=== PATIENT | female | born 1995 | race Two or more races ===

== ENCOUNTER → 2016-07-25 | Outpatient (REF) | payer OTHER ==
[2016-07-25 19:03] LABS: ALBUMIN 3.8 GM/DL (3.2-5.2); ALBUMIN/GLOBULIN RATIO 1.06 (1.00-1.93); ALKALINE PHOSPHATASE 129 U/L (45-117); ALT/SGPT 41 U/L (12-78); ANION GAP 8 MEQ/L (8-16); AST/SGOT 32 U/L (15-37); BILIRUBIN,TOTAL 0.4 MG/DL (0.2-1.0); BLOOD UREA NITROGEN 9 MG/DL (7-18); CALCIUM LEVEL 9.2 MG/DL (8.5-10.1); CARBON DIOXIDE LEVEL 29 MEQ/L (21-32); CHLORIDE LEVEL 106 MEQ/L (98-107); CREATININE FOR GFR 0.77 MG/DL (0.55-1.02); FREE T4 0.83 NG/DL (0.76-1.46); GLOMERULAR FILTRATION RATE > 60.0 (>60); GLUCOSE, FASTING 78 MG/DL (70-105); POTASSIUM SERUM 3.9 MEQ/L (3.5-5.1); SODIUM LEVEL 143 MEQ/L (136-145); TOTAL PROTEIN 7.4 GM/DL (6.4-8.2)
== END ==
LOC: M SFHCPLAZ 15:48
PROVIDERS: ATTEND Nurse Practitioner Family
DX: E66.9 Obesity, unspecified (principal); E03.9 Hypothyroidism, unspecified

== ENCOUNTER 2016-08-14 11:26 | Emergency (ER) | payer BC, OTHER ==
[~2016-08-14] VITALS: Ht 170.2 cm; Wt 129.3 kg
[2016-08-14] MEDS ORDERED: LEVO125T3 PO (11:40)
[2016-08-14 14:14] LABS: BASO % 0.4 % (0.0-1.0); EOS # 0.2 K/mm3 (0.0-0.50); EOS % 2.4 % (0.0-3.0); LARGE UNSTAINED CELL # 0.1 K/mm3 (0.0-0.4); LARGE UNSTAINED CELL % 1.3 % (0.0-4.0); LYMPH # 2.4 K/mm3 (1.5-6.5); MEAN CORPUSCULAR HEMOGLOBIN 29.3 pg (27.0-33.0); MEAN CORPUSCULAR HGB CONC 34.4 g/dl (32.0-36.5); MEAN CORPUSCULAR VOLUME 85.1 fl (80.0-96.0); MONO # 0.3 K/mm3 (0.0-0.8); MONO % 4.8 % (0.0-5.0); PLATELET COUNT, AUTOMATED 211 k/mm3 (150-450); RED CELL DISTRIBUTION WIDTH 12.7 % (11.5-14.5)
[2016-08-14 15:12] VITALS: BP 157/85
--- NOTE | 2016-08-14 16:45 | REP ---
Pelvic sonogram: History: Verify Mirena IUD placement. Findings: Transabdominal and transvaginal scanning are performed. Uterine dimensions are normal 6.7 x 3.8 x 5.6 cm. There is a Nabothian cyst in the cervix. Endometrial echo is 0.5 cm in thickness. The intrauterine device is noted in the lower uterine segment endometrium. Normal ovaries are seen bilaterally. Right ovary measures 3.9 x 2.3 x 3.3 cm. Left ovarian dimensions are 4.0 x 2.7 x 2.6 cm. Impression: The IUD is seen in the lower uterine segment endometrium. Normal ovaries. A Nabothian cyst. Otherwise negative pelvic sonography. Signed by Bienvenido Mcmahan MD 08/14/2016 05:08 P
== END 2016-08-14 15:16 | disposition home or self-care (01) ==
LOC: M ED 14:49
DX: N93.9 Abnormal uterine and vaginal bleeding, unspecified (principal)

== ENCOUNTER → 2016-11-19 | Outpatient (REF) | payer OTHER ==
[~2016-11-19] MED LIST: LEVO125T3 PO
[2016-11-19 19:29] LABS: FREE T4 1.05 NG/DL (0.76-1.46)
== END ==
LOC: M SFHCPLAZ 10:44
PROVIDERS: ATTEND Nurse Practitioner Family
DX: E03.9 Hypothyroidism, unspecified (principal)

== ENCOUNTER → 2017-02-14 | Outpatient (REF) | payer OTHER ==
[~2017-02-14] MED LIST changes: -LEVO125T3 PO; +LEVO125T4 PO
[2017-02-14 16:18] LABS: FREE T4 1.29 NG/DL (0.76-1.46)
== END ==
LOC: M SFHCPLAZ 13:40
PROVIDERS: ATTEND Nurse Practitioner Family
DX: E03.9 Hypothyroidism, unspecified (principal)

== ENCOUNTER → 2018-02-24 | Outpatient (CLI) | payer BC, OTHER ==
[~2018-02-24] MED LIST changes: -LEVO125T4 PO; +PROHANCE 279.3MG/ML 15ML VIAL (A9576) As Ordered; +PROHANCE 279.3MG/ML 5ML VIAL (A9576) As Ordered
== END ==
LOC: M RAD 15:13
DX: H40.1133 Primary open-angle glaucoma, bilateral, severe stage (principal)
CPT/HCPCS: A9576

== ENCOUNTER → 2019-01-28 | Outpatient (CLI) | payer BC, OTHER ==
[~2019-01-28] MED LIST changes: +LEVO125T4 PO; -PROHANCE 279.3MG/ML 15ML VIAL (A9576) As Ordered; -PROHANCE 279.3MG/ML 5ML VIAL (A9576) As Ordered
[2019-01-28 10:47] LABS: HEMATOCRIT 38.6 % (36.0-47.0); HEMOGLOBIN 13.2 g/dl (12.0-15.5); MEAN CORPUSCULAR HEMOGLOBIN 29.8 pg (27.0-33.0); MEAN CORPUSCULAR HGB CONC 34.2 g/dl (32.0-36.5); MEAN CORPUSCULAR VOLUME 87.1 fl (80.0-96.0); PLATELET COUNT, AUTOMATED 229 10^3/uL (150-450); RED BLOOD COUNT 4.43 10^6/uL (4.00-5.40); WHITE BLOOD COUNT 6.1 10^3/uL (4.0-10.0)
[2019-01-28 11:04] LABS: HEMOGLOBIN A1c 5.1 %
[2019-01-28 11:14] LABS: ALBUMIN 3.9 GM/DL (3.2-5.2); ALT/SGPT 52 U/L (12-78); BILIRUBIN,TOTAL 0.5 MG/DL (0.2-1.0); BLOOD UREA NITROGEN 8 MG/DL (7-18); CALCIUM LEVEL 9.2 MG/DL (8.5-10.1); CARBON DIOXIDE LEVEL 26 MEQ/L (21-32); CHLORIDE LEVEL 106 MEQ/L (98-107); CHOLESTEROL LEVEL 135 MG/DL (<200); GLOMERULAR FILTRATION RATE > 60.0 (>60); GLUCOSE, FASTING 89 MG/DL (70-100); HDL CHOLESTEROL 50 MG/DL (>40); IRON (FE) 88 UG/DL (50-170); LDL CHOLESTEROL 72 MG/DL (<100); NON-HDL-C 85 MG/DL; PERCENT SATURATION 29.8 % (13.2-45.0); POTASSIUM SERUM 3.9 MEQ/L (3.5-5.1); SODIUM LEVEL 138 MEQ/L (136-145); THYROXINE (T4) 10.9 UG/DL (4.5-12.0); TOTAL 25(OH) VITAMIN D 20.6 NG/ML (30.0-100.0); TOTAL IRON BINDING CAPACITY 295 UG/DL (250-450); TOTAL PROTEIN 7.3 GM/DL (6.4-8.2); TRIGLYCERIDES LEVEL 66 MG/DL (<150)
[2019-01-28 11:15] LABS: TOTAL T3 164.4 NG/DL (60.0-181.0)
== END ==
LOC: M LAB 10:02
PROVIDERS: ATTEND Family Medicine
DX: D64.9 Anemia, unspecified (principal)

== ENCOUNTER 2019-04-28 17:29 | Emergency (ER) | payer BC, OTHER ==
[~2019-04-28] VITALS: Ht 177.8 cm; Wt 131.8 kg
[2019-04-28 18:21] LABS: BASO % 0.4 % (0.0-1.0); EOS # 0.1 10^3/uL (0.0-0.5); EOS % 0.8 % (0.0-3.0); HEMATOCRIT 43.1 % (36.0-47.0); HEMOGLOBIN 14.3 g/dl (12.0-15.5); LYMPH # 1.5 10^3/uL (1.5-5.0); LYMPH % 17.2 % (24.0-44.0); MEAN CORPUSCULAR HEMOGLOBIN 28.4 pg (27.0-33.0); MEAN CORPUSCULAR HGB CONC 33.2 g/dl (32.0-36.5); MEAN CORPUSCULAR VOLUME 85.5 fl (80.0-96.0); MONO # 0.5 10^3/uL (0.0-0.8); MONO % 6.2 % (0.0-5.0); NEUTROPHILS # 6.4 10^3/uL (1.5-8.5); NEUTROPHILS % 74.9 % (36.0-66.0); PLATELET COUNT, AUTOMATED 284 10^3/uL (150-450); RED BLOOD COUNT 5.04 10^6/uL (4.00-5.40); WHITE BLOOD COUNT 8.5 10^3/uL (4.0-10.0)
[2019-04-28 18:49] LABS: ALBUMIN 4.1 GM/DL (3.2-5.2); ALT/SGPT 40 U/L (12-78); BILIRUBIN,TOTAL 0.4 MG/DL (0.2-1.0); BLOOD UREA NITROGEN 17 MG/DL (7-18); CALCIUM LEVEL 9.7 MG/DL (8.5-10.1); CARBON DIOXIDE LEVEL 28 MEQ/L (21-32); CHLORIDE LEVEL 102 MEQ/L (98-107); CREATININE FOR GFR 1.08 MG/DL (0.55-1.30); GLOMERULAR FILTRATION RATE > 60.0 (>60); GLUCOSE, FASTING 113 MG/DL (70-100); POTASSIUM SERUM 3.7 MEQ/L (3.5-5.1); SODIUM LEVEL 138 MEQ/L (136-145); TOTAL PROTEIN 7.8 GM/DL (6.4-8.2)
[2019-04-28] MEDS ORDERED: LEVO200T4 PO (20:16)
[2019-04-28] MEDS ORDERED: TRIA37.53 PO (20:16)
[2019-04-28] MEDS ORDERED: ONDANSETRON 4 MG ORAL DISINTEGRATING TAB (Q0162 PER 1MG) PO ONE (21:00)
[2019-04-28 21:13] VITALS: BP 138/90
--- NOTE | 2019-04-28 23:52 | ECGEPIP ---
[facility] - ED Test Date: 2019-04-28 Pat Name: EMILIE CARRILLO Department: Room: - Gender: Female [employer]visor [employer]: blu : [id number] Requested By: Mary Sosa Order Number: [id number] Reading MD: Brandt Burk Measurements Intervals [place] Rate: 100 P: 31 TX: 159 QRS: 8 QRSD: 91 T: 36 QT: 355 QTc: 458 Interpretive Statements SINUS TACHYCARDIA NSTTW ABNORMALITIES NO PRIORS FOR COMPARISON Electronically Signed on 04-28-2019 23:51:52 EST by Brandt Burk
== END 2019-04-28 21:59 | disposition home or self-care (01) ==
LOC: M ED 17:29
DX: R42 Dizziness and giddiness (principal); R11.0 Nausea; T50.2X5A Adverse effect of carbonic-anhydrase inhibitors, benzothiadiazides and other diuretics, initial encounter; R00.0 Tachycardia, unspecified; E03.9 Hypothyroidism, unspecified; E55.9 Vitamin D deficiency, unspecified; Z79.899 Other long term (current) drug therapy
CPT/HCPCS: 36415; 80053; 84702; 85025; 93005; 99284; Q0162